=== PATIENT | female | born 1995 | race Caucasian/White ===

== ENCOUNTER → 2021-03-20 | Day surgery (SDC) | payer SELFPAY ==
[~2021-03-20] MED LIST: ALEVE220 MG PO; DEXAMETHASONE SOD PHOS INJ 4 MG/ML SDV ONE; FENTANYL CITRATE/PF 100MCG/2 ML INJ ONE; GENTAMICIN SULFATE 40 MG/ML 2 ML VIAL ONE; HYDROCODON-ACE1 EAC9 PO; HYDROXYZINE HCL25 MG PO; JUNEL FE 1 MG-1 EACH PO; KETAMINE HCL INJ 50 MG/ML 10 ML VIAL ONE; LEXAPRO10 MG PO; LIDOCAINE HCL 2% LOCAL INJ 5 ML SDV VIAL INJ ONE; MIDAZOLAM HCL 2 MG/2 ML VIAL ONE; ONDANSETRON HCL INJ 2MG/ML 2ML 2 MG/ML VIAL ONE; POVIDONE IODINE 0.05% 0.05 % ML PO ONE; PROPOFOL IV EMULSION 10 MG/ML 20 ML VIAL ONE; SEVOFLURANE INHAL SOLN 250 ML PEN BTL ONE; SODIUM CHLORIDE 0.9% 50ML 50 ML ONE
[2021-03-20 10:10] VITALS: BP 119/73
== END | disposition home or self-care (01) ==
LOC: OR 06:44
PROVIDERS: ATTEND Plastic Surgery
DX: N64.81 Ptosis of breast (principal); N64.82 Hypoplasia of breast; Z01.812 Encounter for preprocedural laboratory examination; Z20.822 Contact with and (suspected) exposure to COVID-19
CPT/HCPCS: 19316; 19325; 81025; C1789; J0690; J1100; J1580; J2001; J2405; J2704; J3010; U0002; J2250